=== PATIENT | male | born 1990 | race Caucasian/White ===

== ENCOUNTER 2017-09-26 12:50 | Emergency (ER) | payer OTHER ==
[~2017-09-26] VITALS: Ht 177.8 cm; Wt 70.3 kg
[2017-09-26 15:42] VITALS: BP 115/92
== END 2017-09-26 17:13 | disposition home or self-care (01) ==
LOC: ER 12:50
DX: M54.9 Dorsalgia, unspecified (principal); M79.1 Myalgia
CPT/HCPCS: 72110